=== PATIENT | female | born 1975 | race Caucasian/White ===

== ENCOUNTER → 2025-04-08 07:13 | Outpatient (REF) | payer OTHER, SELFPAY | LOC: HWRAD 07:13 | PROVIDERS: ATTENDING PHYSICIAN Physician Assistant | DX: R22.1 Localized swelling, mass and lump, neck (principal); R63.5 Abnormal weight gain; Z68.41 Body mass index [BMI] 40.0-44.9, adult; E66.813 Obesity, class 3 | CPT/HCPCS: 76536 ==